=== PATIENT | female | born 1990 | race Caucasian/White ===

== ENCOUNTER → 2020-11-07 10:10 | Outpatient (CLI) | payer MEDICAID, SELFPAY ==
--- NOTE | 2020-11-07 10:10 | MRI_ITS ---
STUDY: MRI LEFT KNEE REASON FOR EXAM: Anterior/medial left knee pain. TECHNIQUE: Standardized fat and water weighted pulse sequences were obtained in all 3 orthogonal planes. COMPARISON: Radiographs 10/23/2020. FINDINGS: Normal medial meniscus. Normal hyaline cartilage of the medial femorotibial compartment. Normal medial femoral condyle and tibial plateau. Normal medial collateral ligamentous complex (MCL). Normal distal semimembranosus, gracilis and semitendinosus tendons. Normal lateral meniscus. Normal hyaline cartilage of the lateral femorotibial compartment. Normal lateral femoral condyle and tibial plateau. Normal proximal tibiofibular articulation. Normal lateral collateral (fibular) ligament. Normal popliteus tendon. Normal biceps femoris tendon. Normal anterior cruciate ligament (ACL). Normal posterior cruciate ligament (PCL). Normal congruent patellofemoral articulation. Normal hyaline cartilage of the patellofemoral compartment. Normal medial and lateral patellar retinaculum. Normal visualized quadriceps tendon. Normal patellar tendon. Normal Hoffa''s fat pad. There is a very small volume of fluid in the knee joint. There is scarring and micrometallic artifact in the subcutis adipose space anterior to the proximal tibia. There is intramedullary scarring from previous tibial angelica. MRI/Lower Ext Joint Only (Routine) IMPRESSION: Very small joint effusion. Scarring from previous tibial intramedullary angelica. Otherwise, unremarkable MRI of the left knee without demonstrated meniscal or ligamentous injury. Electronically Signed: Elio Moon MD at 11:23 EDT Tel , Service support ,
== END ==
PROVIDERS: PCP Nurse Practitioner Primary Care; Referring Provider Orthopaedic Surgery; Visit Provider Orthopaedic Surgery
DX: M25.562 Pain in left knee (principal)
CPT/HCPCS: 73721